=== PATIENT | female | born 1980 | race Caucasian/White ===

== ENCOUNTER 2019-03-14 07:35 | Emergency (ER) | payer MEDICAID, MEDICARE, OTHER, SELFPAY ==
[~2019-03-14] VITALS: Ht 152.4 cm; Wt 56.0 kg
[2019-03-14 07:41] VITALS: BP 115/82
== END 2019-03-14 09:10 | disposition home or self-care (01) ==
LOC: ED 09:04
DX: N76.4 Abscess of vulva (principal); F11.23 Opioid dependence with withdrawal
CPT/HCPCS: 93005; 99283